=== PATIENT | female | born 1965 | race Two or more races ===

== ENCOUNTER 2024-01-23 23:44 | Inpatient (IN) | payer OTHER ==
[~2024-01-23] VITALS: Ht 157.5 cm; Wt 103.3 kg
[~2024-01-23 23:44] MED LIST: MELO7.5T7 PO; NAP500T PO
[2024-01-24 00:58] LABS: Basophils # (auto) 0 10 ^3/uL (0-0.2); Basophils % (auto) 0.5 % (0.0-2.0); Eosinophils # (auto) 0.2 10 ^3/uL (0-0.8); Eosinophils % (auto) 2.7 % (0.0-7.0); Hematocrit 36.8 % (36.0-46.0); Hemoglobin 12.4 g/dL (12.2-16.2); Lymphocytes # (auto) 2.3 10 ^3/uL (0.4-5.4); Mean Corpuscular Hemoglobin 30.9 pg (28.0-32.0); Mean Corpuscular Hgb Conc. 33.8 g/dL (32.0-36.0); Mean Corpuscular Volume 91.4 fL (80.0-100.0); Monocytes # (auto) 0.6 10 ^3/uL (0-1.3); Monocytes % (auto) 6.7 % (0.0-12.0); Neutrophils # (auto) 5.8 10 ^3/uL (1.6-8.6); Neutrophils % (auto) 64.1 % (37.0-80.0); Red Blood Cells 4.03 10^6/uL (4.0-5.20); Red Cell Distribution Width 13.6 % (11.8-14.3)
[2024-01-24 01:15] LABS: Alanine Aminotransferase 19 U/L (7-40); Albumin 3.9 g/dL (3.2-4.8); Alkaline Phosphatase 106 U/L (46-116); Anion Gap 11 (5-15); Aspartate Aminotransferase 14 U/L (13-40); BUN/Creatinine Ratio 17.2 (10.0-20.0); Blood Urea Nitrogen 15 mg/dL (9-23); Calcium 9.7 mg/dL (8.7-10.4); Carbon Dioxide 15 mmol/L (20-30); Chloride 114 mmol/L (98-107); Glucose 214 mg/dL (74-106); Lipase 37 U/L (12-53); Potassium 3.6 mmol/L (3.5-5.1); Sodium 140 mmol/L (136-145)
[2024-01-24 01:16] LABS: Bilirubin, Total 0.2 mg/dL (0.2-1.0); Total Protein 6.8 g/dL (5.7-8.2)
[2024-01-24] MEDS: ONDANSETRON HCL 4 MG/2 ML VIAL IV ONE (02:40)
[2024-01-24] MEDS: MORPHINE SULFATE 4 MG/ML SYR/VIAL IV ONE (02:41)
[2024-01-24 02:47] VITALS: PULSE 95; RESP 20; O2SAT 95
[2024-01-24] MEDS: TAMSULOSIN HYDROCHLORIDE 0.4 MG CAP PO ONE (04:35)
[2024-01-24] MEDS: KETOROLAC TROMETH 30 MG/ML 1ML VIAL IV ONE ×2 (04:35→11:25)
[2024-01-24 07:50] VITALS: RESP 18; O2SAT 97
[2024-01-24] MEDS ORDERED: PANT40TA57 PO (10:43)
[2024-01-24] MEDS ORDERED: LOVA10TA54 PO (10:43)
[2024-01-24] MEDS ORDERED: ACYC1TAB2 PO (10:43)
[2024-01-24] MEDS ORDERED: HYDR12.59 PO (10:43)
[2024-01-24] MEDS ORDERED: LOSA-534 PO (10:43)
[2024-01-24] MEDS ORDERED: MORPHINE SULFATE INJ 2 MG/ml SYRG IV PRN (10:45)
[2024-01-24] MEDS ORDERED: TEMAZEPAM 15 MG CAP PO PRN (10:45)
[2024-01-24] MEDS ORDERED: HYDROcodone-ACET 5/325MG TAB PO PRN (10:45)
[2024-01-24] MEDS ORDERED: NITROGLYCERIN 0.4 MG SL TAB SL PRN (10:45)
[2024-01-24] MEDS: SODIUM CHLORIDE 0.9% 1,000 ML IV SCH (11:25)
[2024-01-24] MEDS: TAMSULOSIN HYDROCHLORIDE 0.4 MG CAP PO SCH (11:25)
[2024-01-24 11:55] LABS: Urine Bacteria None Seen /hpf (None Seen)
[2024-01-24 12:05] LABS: Urine Blood Negative /uL (Negative); Urine Clarity Clear (Clear); Urine Color Yellow (Yellow); Urine Mucus FEW (None Seen); Urine Protein, UAD TRACE (Negative); Urine Specific Gravity 1.032 (1.001-1.035); Urine Urobilinogen 2 mg/dL (Negative); Urine WBC 8 /hpf (0 - 5); Urine pH 5.5 (5.0-9.0)
[2024-01-24] MEDS: hydroCHLOROthiazide 25 MG TAB PO SCH (12:05)
[2024-01-24] MEDS: ACYCLOVIR 400 MG TAB PO SCH (14:11)
[2024-01-24] MEDS: MANNITOL FTV 25% 12.5 GM/50 ML 50 ML IV ONE (16:29)
[2024-01-24 18:20] VITALS: BP 124/48; PULSE 71; RESP 18; TEMP 98.2; O2SAT 99
[2024-01-24 20:00] VITALS: PULSE 96; RESP 18
[2024-01-24] MEDS: MORPHINE SULFATE INJ 2 MG/ml SYRG IV PRN (20:53)
[2024-01-24 21:00] VITALS: BP 128/51; PULSE 94; RESP 17; TEMP 98.5; O2SAT 94
[2024-01-24] MEDS: ONDANSETRON HCL 4 MG/2 ML VIAL IV PRN (21:42)
[2024-01-25] VITALS (8 sets, daily range): BP systolic 110–140; BP diastolic 54–68; PULSE 90–106; RESP 17–92; TEMP 98.1–100.7; O2SAT 92–97
[2024-01-25 07:43] LABS: Alanine Aminotransferase 15 U/L (7-40); Alkaline Phosphatase 82 U/L (46-116); Anion Gap 7 (5-15); BUN/Creatinine Ratio 11.9 (10.0-20.0); Blood Urea Nitrogen 14 mg/dL (9-23); Calcium 8.9 mg/dL (8.5-10.1); Carbon Dioxide 22 mmol/L (20-30); Chloride 111 mmol/L (98-107); Glucose 135 mg/dL (74-106); Potassium 3.9 mmol/L (3.5-5.1); Sodium 140 mmol/L (136-145)
[2024-01-25 07:44] LABS: Albumin 3.5 g/dL (3.2-4.8); Aspartate Aminotransferase 14 U/L (13-40)
[2024-01-25 07:45] LABS: Bilirubin, Total 0.4 mg/dL (0.2-1.0)
[2024-01-25] MEDS ORDERED: ENOXAPARIN SOD 40 MG/0.4 ML SYRINGE SC SCH (10:00)
[2024-01-25] MEDS: PANTOPRAZOLE 40 MG TAB PO SCH (10:11)
[2024-01-25] MEDS: LOSARTAN POTASSIUM 50 MG TAB PO SCH (10:11)
[2024-01-25] MEDS: ENOXAPARIN SOD 40 MG/0.4 ML SYRINGE SC SCH (10:12)
[2024-01-25] MEDS: SENNA 8.6 MG TAB PO SCH (13:38)
[2024-01-25] MEDS: LACTULOSE 20Gm/30ML SOLN PO PRN (13:39)
[2024-01-25] MEDS ORDERED: MELO7.5T7 PO (17:40)
[2024-01-25] MEDS ORDERED: PROP1TAB53 PO (17:40)
[2024-01-25] MEDS ORDERED: ACET250T20 PO (17:40)
[2024-01-25] MEDS: ATORVASTATIN 20 MG TAB PO SCH (20:27)
[2024-01-26] VITALS (8 sets, daily range): BP systolic 108–142; BP diastolic 48–69; PULSE 80–102; RESP 18–20; TEMP 97.6–99.3; O2SAT 90–97
[2024-01-26 17:05] LABS: INR 1.07 (0.9-1.15); Partial Thromboplastin Time 38.7 SEC (24.5-34.5); Prothrombin Time 11.3 sec (9.3-11.8)
[2024-01-26] MEDS: MANNITOL FTV 25% 12.5 GM/50 ML 50 ML IV ONE (17:06)
[2024-01-27] VITALS (7 sets, daily range): BP systolic 119–148; BP diastolic 59–72; PULSE 81–95; RESP 13–19; TEMP 97.1–99.2; O2SAT 92–98
[2024-01-27] MEDS: IODIXANOL 320MG/ML 100ML BTL IV ONE (16:08)
[2024-01-27] MEDS: fentaNYL CITRATE 100 MCG/2 ML VL ONE (16:15)
[2024-01-27] MEDS: LIDOCAINE 2%HCL (LOCAL ANESTH.) INJ 20ML MDV ONE (16:16)
[2024-01-27] MEDS: MIDAZOLAM HCL 2MG/2ML 2ml VIAL (1mg/ml) ONE (16:16)
[2024-01-27] MEDS: ceFAZolin 1GM/50ML 50 ML IV ONE (16:16)
[2024-01-28] VITALS (7 sets, daily range): BP systolic 107–153; BP diastolic 59–83; PULSE 73–96; RESP 18–21; TEMP 98.1–98.4; O2SAT 91–100
[2024-01-28] MEDS ORDERED: HYDR-4902 PO (09:19)
[2024-01-28] MEDS ORDERED: TAMS-35 PO (09:19)
[2024-01-28] MEDS ORDERED: LEVO500T91 PO (09:19)
[2024-01-28 10:34] LABS: Basophils # (auto) 0 10 ^3/uL (0-0.2); Basophils % (auto) 0.4 % (0.0-2.0); Eosinophils # (auto) 0.3 10 ^3/uL (0-0.8); Eosinophils % (auto) 3.8 % (0.0-7.0); Hematocrit 31.4 % (36.0-46.0); Hemoglobin 10.5 g/dL (12.2-16.2); Lymphocytes # (auto) 1.9 10 ^3/uL (0.4-5.4); Mean Corpuscular Hemoglobin 30.8 pg (28.0-32.0); Mean Corpuscular Hgb Conc. 33.3 g/dL (32.0-36.0); Mean Corpuscular Volume 92.2 fL (80.0-100.0); Monocytes # (auto) 0.6 10 ^3/uL (0-1.3); Monocytes % (auto) 8.5 % (0.0-12.0); Neutrophils # (auto) 4.7 10 ^3/uL (1.6-8.6); Neutrophils % (auto) 62.3 % (37.0-80.0); Red Blood Cells 3.41 10^6/uL (4.0-5.20); White Blood Cell 7.5 10^3/uL (4.4-10.8)
[2024-01-28 10:51] LABS: Alanine Aminotransferase 26 U/L (7-40); Albumin 3.4 g/dL (3.2-4.8); Alkaline Phosphatase 80 U/L (46-116); Anion Gap 8 (5-15); Aspartate Aminotransferase 23 U/L (13-40); BUN/Creatinine Ratio 6.8 (10.0-20.0); Bilirubin, Total 0.2 mg/dL (0.2-1.0); Blood Urea Nitrogen 5 mg/dL (9-23); Calcium 9.2 mg/dL (8.7-10.4); Carbon Dioxide 26 mmol/L (20-30); Chloride 109 mmol/L (98-107); Glucose 97 mg/dL (74-106); Magnesium 1.5 mg/dL (1.6-2.6); Potassium 3.4 mmol/L (3.5-5.1); Sodium 143 mmol/L (136-145); Total Protein 6.1 g/dL (5.7-8.2)
[2024-01-29] VITALS (8 sets, daily range): BP systolic 108–153; BP diastolic 68–77; PULSE 75–91; RESP 19–21; TEMP 97.6–99.3; O2SAT 91–97
[2024-01-29] MEDS: ACETAMINOPHEN 325 MG TAB PO PRN (10:59)
[2024-01-29] MEDS: MORPHINE SULF 30 mg ER tab PO PRN (13:10)
[2024-01-29] MEDS: MANNITOL FTV 25% 12.5 GM/50 ML 50 ML IV ONE (15:33)
[2024-01-30] VITALS (9 sets, daily range): BP systolic 128–174; BP diastolic 58–77; PULSE 83–91; RESP 18–20; TEMP 98–98.6; O2SAT 86–96
[2024-01-30] MEDS: IOHEXOL 300 MG/ML 100ML BOTTLE IJ ONE (12:12)
[2024-01-30] MEDS: ONDANSETRON ODT 4 MG TAB PO PRN (22:19)
[2024-01-31 05:00] VITALS: BP 96/49; PULSE 96; RESP 19; TEMP 98.5; O2SAT 97
[2024-01-31 06:55] LABS: Basophils # (auto) 0.1 10 ^3/uL (0-0.2); Basophils % (auto) 1.3 % (0.0-2.0); Eosinophils # (auto) 0.3 10 ^3/uL (0-0.8); Eosinophils % (auto) 3.6 % (0.0-7.0); Hematocrit 34.4 % (36.0-46.0); Hemoglobin 11.7 g/dL (12.2-16.2); Lymphocytes # (auto) 2.6 10 ^3/uL (0.4-5.4); Mean Corpuscular Hemoglobin 30.7 pg (28.0-32.0); Mean Corpuscular Volume 90.2 fL (80.0-100.0); Monocytes # (auto) 0.5 10 ^3/uL (0-1.3); Monocytes % (auto) 5.4 % (0.0-12.0); Neutrophils # (auto) 5.8 10 ^3/uL (1.6-8.6); Neutrophils % (auto) 61.7 % (37.0-80.0); Nucleated Red Blood Cells % 0.1 %; Red Blood Cells 3.81 10^6/uL (4.0-5.20); Red Cell Distribution Width 13.1 % (11.8-14.3); White Blood Cell 9.4 10^3/uL (4.4-10.8)
[2024-01-31 07:06] LABS: Chloride 100 mmol/L (98-107); Potassium 3.2 mmol/L (3.5-5.1); Sodium 140 mmol/L (136-145)
[2024-01-31 07:07] LABS: Anion Gap 8 (5-15); Calcium 9.3 mg/dL (8.7-10.4); Carbon Dioxide 32 mmol/L (20-30)
[2024-01-31 07:12] LABS: Glucose 110 mg/dL (74-106)
[2024-01-31 07:13] LABS: Magnesium 1.3 mg/dL (1.6-2.6)
[2024-01-31 07:17] LABS: BUN/Creatinine Ratio 5.6 (10.0-20.0); Blood Urea Nitrogen < 5 mg/dL (9-23)
[2024-01-31 09:00] VITALS: BP 145/66; PULSE 92; RESP 20; TEMP 98; O2SAT 98
[2024-01-31] MEDS: FUROSEMIDE 40 MG/4 ML VIAL IV SCH (10:58)
[2024-01-31] MEDS: POTASSIUM CHL 20 Meq TABLET PO ONE (12:22)
[2024-01-31 13:00] VITALS: BP 113/57; PULSE 83; RESP 20; TEMP 98.4; O2SAT 93
[2024-01-31 17:00] VITALS: BP 115/53; PULSE 79; RESP 20; TEMP 97.9; O2SAT 92
[2024-01-31 20:00] VITALS: RESP 18
[2024-01-31 21:00] VITALS: BP 113/47; PULSE 87; RESP 20; TEMP 98.3; O2SAT 91
[2024-02-01] VITALS (7 sets, daily range): BP systolic 91–127; BP diastolic 45–58; PULSE 74–85; RESP 17–20; TEMP 97.4–98.3; O2SAT 90–97
[2024-02-01] MEDS ORDERED: IOHEXOL 300 MG/ML 100ML BOTTLE IJ ONE (09:03)
[2024-02-01 09:07] LABS: Chloride 99 mmol/L (98-107); Sodium 141 mmol/L (136-145)
[2024-02-01 09:08] LABS: Anion Gap 5 (5-15); Carbon Dioxide 37 mmol/L (20-30)
[2024-02-01 09:13] LABS: BUN/Creatinine Ratio 4.4 (10.0-20.0); Blood Urea Nitrogen 5 mg/dL (9-23); Glucose 130 mg/dL (74-106)
[2024-02-01] MEDS ORDERED: MORP30TA5 PO (10:24)
[2024-02-01] MEDS ORDERED: POTASSIUM CHL 20MEQ/100ML 100 ML IV SCH (17:30)
[2024-02-01] MEDS: POTASSIUM CHL 20MEQ/100ML 100 ML IV SCH (19:37)
[2024-02-02] VITALS (8 sets, daily range): BP systolic 100–125; BP diastolic 51–65; PULSE 73–91; RESP 14–18; TEMP 97.5–98.2; O2SAT 95–99
[2024-02-02] MEDS: POTASSIUM CHL 20MEQ/100ML 100 ML IV SCH (00:45)
== END 2024-02-02 17:00 | disposition home or self-care (01) | DRG 465 ==
LOC: EDBD 23:44 → ER 23:44 → OVERFLOW 01-24 10:48 → WEST WING 01-24 18:02
PROVIDERS: ADMIT Nurse Practitioner; ATTEND Nurse Practitioner
PROC: 0T933ZZ Drainage of Right Kidney Pelvis, Percutaneous Approach (ICD-10-PCS; principal; 2024-01-27)
PROC: BT111ZZ Fluoroscopy of Right Kidney using Low Osmolar Contrast (ICD-10-PCS; 2024-01-27)
PROC: BT111ZZ Fluoroscopy of Right Kidney using Low Osmolar Contrast (ICD-10-PCS; 2024-02-01)
DX: N13.2 Hydronephrosis with renal and ureteral calculous obstruction (principal); N17.0 Acute kidney failure with tubular necrosis; K76.0 Fatty (change of) liver, not elsewhere classified; I10 Essential (primary) hypertension; I25.10 Atherosclerotic heart disease of native coronary artery without angina pectoris; K57.30 Diverticulosis of large intestine without perforation or abscess without bleeding; K21.9 Gastro-esophageal reflux disease without esophagitis; Z79.899 Other long term (current) drug therapy; Z87.442 Personal history of urinary calculi
CPT/HCPCS: 36415; 74176; 74178; 74425; 76942; 80048; 80053; 81001; 83690; 83735; 85025; 85610; 85730; 93005; 93458; 96365; 96375; 96376; 99152; G0378; J1885; J2250; J2405; J3480; Q0162; Q9967

== ENCOUNTER 2024-03-22 06:15 | Emergency (ER) | payer OTHER ==
[~2024-03-22] VITALS: Ht 162.6 cm; Wt 91.7 kg
[~2024-03-22 06:15] MED LIST changes: +ACET250T20 PO; +ACYC1TAB2 PO; +HYDR12.59 PO; +LEVO500T91 PO; +LOSA-534 PO; +LOVA10TA54 PO; +MORP30TA5 PO; -NAP500T PO; +PANT40TA57 PO; +PROP1TAB53 PO; +TAMS-35 PO
[2024-03-22 06:56] VITALS: BP 138/64
[2024-03-22 07:10] VITALS: TEMP 97.7
[2024-03-22] MEDS: ACETAMINOPHEN 500 MG TAB PO ONE (07:10)
[2024-03-22 07:17] VITALS: PULSE 77; RESP 18; O2SAT 97
[2024-03-22] MEDS ORDERED: IBUP-1456 PO (07:49)
[2024-03-22] MEDS ORDERED: CEPH500C PO (07:49)
== END 2024-03-22 08:02 | disposition home or self-care (01) ==
LOC: ER 06:15
DX: S00.83XA Contusion of other part of head, initial encounter (principal); S80.212A Abrasion, left knee, initial encounter; W18.09XA Striking against other object with subsequent fall, initial encounter; Y93.01 Activity, walking, marching and hiking; Y92.89 Other specified places as the place of occurrence of the external cause; Y99.8 Other external cause status
CPT/HCPCS: 70450